=== PATIENT | male | born 1950 | race Caucasian/White ===

== ENCOUNTER → 2019-12-08 | Outpatient (CLI) | payer MEDICARE ==
[~2019-12-08] MED LIST: ALBU8.5H8 INH; AMIO200T42 PO; ASPI81TA45 PO; ATOR-2 PO; BUPR150T73 PO; FURO20TA3 PO; HYDR-3237 PO; LISI5TAB7 PO; MELA5TAB14 PO; METO25TA91 PO; METR-90 PO; TAMS-11 PO; WARF7.5T PO-COUM
== END | disposition home or self-care (01) ==
LOC: CVU 09:14
PROVIDERS: ATTEND Internal Medicine Cardiovascular Disease
DX: I51.7 Cardiomegaly (principal); I48.91 Unspecified atrial fibrillation; Z95.2 Presence of prosthetic heart valve
CPT/HCPCS: 93306

== ENCOUNTER 2019-12-15 10:07 | Day surgery (SDC) | payer MEDICARE ==
[~2019-12-15] VITALS: Ht 190.5 cm; Wt 78.2 kg
[2019-12-15] MEDS ORDERED: SODIUM CHLORIDE 0.9% 1,000 ML IV SCH (11:00)
[2019-12-15] MEDS ORDERED: WARF7.5T46 PO (11:12)
[2019-12-15] MEDS ORDERED: FURO20TA3 PO (11:14)
[2019-12-15] MEDS ORDERED: AMIO100T4 PO (11:14)
[2019-12-15] MEDS ORDERED: METO25TA91 PO (11:14)
[2019-12-15] MEDS ORDERED: LISI5TAB7 PO (11:15)
[2019-12-15 11:18] VITALS: BP 117/68
[2019-12-15 11:33] LABS: INTERNATIONAL NORMALIZED RATIO 1.86 (0.93-1.1); PROTHROMBIN TIME 19.3 Seconds (9.6-11.5)
[2019-12-15 11:36] LABS: ANION GAP 5 mmol/L (5-15); CALCIUM 9.1 mg/dL (8.5-10.1); CHLORIDE 109 mmol/L (98-107); CREATININE 1.07 mg/dL (0.7-1.3)
== END 2019-12-15 12:30 | disposition home or self-care (01) ==
LOC: CACL 10:07
PROVIDERS: ATTEND Internal Medicine Clinical Cardiac Electrophysiology
DX: I48.19 Other persistent atrial fibrillation (principal); Z53.8 Procedure and treatment not carried out for other reasons; I42.8 Other cardiomyopathies; F17.210 Nicotine dependence, cigarettes, uncomplicated; F12.90 Cannabis use, unspecified, uncomplicated; Z79.82 Long term (current) use of aspirin; Z79.899 Other long term (current) drug therapy; Z88.5 Allergy status to narcotic agent; Z88.8 Allergy status to other drugs, medicaments and biological substances; Z88.0 Allergy status to penicillin; Z72.89 Other problems related to lifestyle; Z20.828 Contact with and (suspected) exposure to other viral communicable diseases; Z95.2 Presence of prosthetic heart valve
CPT/HCPCS: 36415; 80048; 85610; 87635; 92960; 93005

== ENCOUNTER 2019-12-19 09:55 | Day surgery (SDC) | payer MEDICARE ==
[~2019-12-19] VITALS: Ht 190.5 cm; Wt 78.2 kg
[~2019-12-19 09:55] MED LIST changes: +AMIO100T4 PO; +WARF7.5T46 PO
[2019-12-19] MEDS ORDERED: SODIUM CHLORIDE 0.9% 1,000 ML IV SCH (10:30)
[2019-12-19 10:33] VITALS: BP 139/63
[2019-12-19 10:55] LABS: INTERNATIONAL NORMALIZED RATIO 3.64 (0.93-1.1); PROTHROMBIN TIME 38.1 Seconds (9.6-11.5)
[2019-12-19 10:57] LABS: ANION GAP 7 mmol/L (5-15); CALCIUM 9.1 mg/dL (8.5-10.1); CHLORIDE 112 mmol/L (98-107)
[2019-12-19] MEDS ORDERED: PROPOFOL 10 MG/ML, 20ML ONE (12:32)
== END 2019-12-19 13:28 | disposition home or self-care (01) ==
LOC: CACL 09:55
PROVIDERS: ATTEND Internal Medicine Clinical Cardiac Electrophysiology
DX: I48.19 Other persistent atrial fibrillation (principal); Z20.828 Contact with and (suspected) exposure to other viral communicable diseases; I42.8 Other cardiomyopathies; I50.9 Heart failure, unspecified; Z79.01 Long term (current) use of anticoagulants; Z79.82 Long term (current) use of aspirin; Z79.891 Long term (current) use of opiate analgesic; Z79.899 Other long term (current) drug therapy; Z87.891 Personal history of nicotine dependence; Z88.0 Allergy status to penicillin; Z88.5 Allergy status to narcotic agent; Z95.2 Presence of prosthetic heart valve; Z95.0 Presence of cardiac pacemaker; Z95.1 Presence of aortocoronary bypass graft
CPT/HCPCS: 36415; 80048; 85610; 87635; 92960; 93005; 93312; 93325; J2704

== ENCOUNTER 2020-02-15 10:10 | Observation (INO) | payer MEDICARE ==
[~2020-02-15] VITALS: Ht 190.5 cm; Wt 86.3 kg
[2020-02-15] MEDS: SODIUM CHLORIDE 0.9% 1,000 ML IV SCH ×3 (12:30→21:59)
[2020-02-15] MEDS ORDERED: WARF-36 PO ×2 (12:38→12:39)
[2020-02-15 12:43] VITALS: BP 138/82
[2020-02-15 12:57] LABS: BASOPHILS % (AUTO) 1 % (0-1); EOSINOPHILS % (AUTO) 1 % (1-7); LYMPHOCYTES % (AUTO) 15 % (22-44); MEAN CORPUSCULAR HEMOGLOBIN 28.4 pg (27.5-34.5); MEAN CORPUSCULAR HGB CONC 33.1 g/dL (33.2-36.2); MEAN PLATELET VOLUME 8.9 fL (7.4-10.4); MONOCYTES % (AUTO) 7 % (2-9); NEUTROPHILS % (AUTO) 77 % (42-75); PLATELET COUNT 245 x10^3/uL (130-400); RED BLOOD COUNT 5.54 x10^6/uL (4.38-5.82); RED CELL DISTRIBUTION WIDTH 15.3 % (9.4-14.8)
[2020-02-15 13:02] LABS: INTERNATIONAL NORMALIZED RATIO 1.14 (0.93-1.1); PROTHROMBIN TIME 12.1 Seconds (9.6-11.5)
[2020-02-15 13:05] LABS: ANION GAP 3 mmol/L (5-15); CALCIUM 9.2 mg/dL (8.5-10.1); CHLORIDE 110 mmol/L (98-107); CREATININE 1.18 mg/dL (0.7-1.3)
[2020-02-15 13:07] LABS: MD NO
[2020-02-15] MEDS ORDERED: FENTANYL PF 250 MCG/5ML ONE (13:29)
[2020-02-15] MEDS ORDERED: ROCURONIUM 10MG/ML,5ML ONE (13:30)
[2020-02-15] MEDS ORDERED: DEXAMETHASONE 4 MG/ML, 5ML ONE (13:32)
[2020-02-15] MEDS ORDERED: VASOPRESSIN 20 UNIT/ML, 1ML ONE (14:01)
[2020-02-15] MEDS ORDERED: GLYCOPYRROLATE 0.2MG/1ML, 5ML ONE (14:01)
[2020-02-15] MEDS ORDERED: ONDANSETRON 2MG/ML, 2ML ONE (14:01)
[2020-02-15] MEDS ORDERED: NEOSTIGMINE 1 MG/ML, 10ML ONE (14:01)
[2020-02-15] MEDS ORDERED: PROPOFOL 10 MG/ML, 20ML ONE (14:01)
[2020-02-15] MEDS ORDERED: LIDOCAINE 1%, 20ML ONE ×2 (14:17→15:03)
[2020-02-15] MEDS ORDERED: CEFAZOLIN 1,000 MG ONE (14:42)
[2020-02-15] MEDS ORDERED: DIAZEPAM 5 MG/ML, 2ML IVPush PRN (17:00)
[2020-02-15] MEDS ORDERED: LABETALOL 5MG/ML, 20ML IV PRN (17:00)
[2020-02-15] MEDS ORDERED: HYDROmorphone 1 MG/ML, 1ML INJ IVPush PRN (17:00)
[2020-02-15] MEDS ORDERED: ONDANSETRON 2MG/ML, 2ML IVPush PRN (17:00)
[2020-02-15] MEDS ORDERED: PROMETHAZINE 25 MG/ML, 1ML IVPush PRN (17:00)
[2020-02-15] MEDS ORDERED: HOLD MEDICATION MC PRN (17:00)
[2020-02-15] MEDS ORDERED: MIDAZOLAM 1 MG/ML, 2ML IV PRN (17:00)
[2020-02-15] MEDS ORDERED: MEPERIDINE/PF 25MG/0.5ML IVPush PRN (17:00)
[2020-02-15] MEDS ORDERED: hydrALAzine 20 MG/ML, 1ML IV PRN (17:00)
[2020-02-15] MEDS ORDERED: LISINOPRIL 5 MG TABLET PO PRN (17:00)
[2020-02-15] MEDS ORDERED: FUROSEMIDE 20 MG TABLET PO PRN (17:00)
[2020-02-15] MEDS ORDERED: EPHEDRINE 50 MG/ML, 1ML IVPush PRN (17:00)
[2020-02-15] MEDS ORDERED: ALBUTEROL SULFATE 2.5 MG/3 ML NPPB PRN (17:00)
[2020-02-15] MEDS ORDERED: FENTANYL PF 100 MCG/2ML IV PRN (17:00)
[2020-02-15] MEDS ORDERED: PROMETHAZINE 12.5 MG SUPP PR PRN (17:00)
[2020-02-15] MEDS ORDERED: DIPHENHYDRAMINE 50 MG/ML, 1ML IVPush PRN (17:00)
[2020-02-15] MEDS ORDERED: OXYcodone 5 MG/5 ML ORAL.SOL UDC ONE ×2 (17:57→18:23)
[2020-02-15] MEDS ORDERED: ACETAMINOPHEN 650 MG/20.3 ML UDC ONE (17:57)
[2020-02-15] MEDS: OXYcodone 5 MG/5 ML ORAL.SOL UDC PO PRN ×2 (17:58→18:23)
[2020-02-15] MEDS: ACETAMINOPHEN 325 MG TABLET PO PRN ×2 (17:59→21:57)
[2020-02-15] MEDS ORDERED: WARFARIN 5 MG TABLET PO-COUM SCH (18:00)
[2020-02-15] MEDS ORDERED: FENTANYL PF 100 MCG/2ML ONE (18:23)
[2020-02-15] MEDS ORDERED: ATORVASTATIN 80 MG TABLET PO SCH (21:00)
[2020-02-15] MEDS: SODIUM CHLORIDE FLUSH 10ML SYR IVF SCH (21:57)
[2020-02-16 00:34] VITALS: BP 119/72
[2020-02-16] MEDS: ACETAMINOPHEN 325 MG TABLET PO PRN (06:03)
[2020-02-16 07:10] VITALS: BP 120/71
[2020-02-16] MEDS: SODIUM CHLORIDE FLUSH 10ML SYR IVF SCH (09:00)
[2020-02-16] MEDS ORDERED: METOPROLOL SUCCINATE 25 MG TAB.ER.24H PO SCH (09:00)
[2020-02-16] MEDS ORDERED: TAMSULOSIN 0.4 MG CAP.ER.24H PO SCH (09:00)
[2020-02-16] MEDS ORDERED: BUPROPION SR 150 MG TABLET PO SCH (09:00)
[2020-02-16] MEDS ORDERED: ASPIRIN 81 MG TABLET EC PO SCH (09:00)
[2020-02-16] MEDS ORDERED: OXYcodone IR 5MG TABLET ONE (09:08)
[2020-02-16] MEDS ORDERED: WARFARIN 5 MG TABLET PO-COUM SCH (18:00)
[2020-02-17] MEDS ORDERED: WARFARIN 2.5 MG TABLET PO-COUM SCH (18:00)
== END 2020-02-16 10:18 | disposition home or self-care (01) ==
LOC: CACL 10:10 → ORIP 16:35 → 5SO 18:53 → DCLOUNGE 02-16 10:09
PROVIDERS: ADMIT Internal Medicine Clinical Cardiac Electrophysiology; ATTEND Internal Medicine Clinical Cardiac Electrophysiology
DX: I48.19 Other persistent atrial fibrillation (principal); Z20.828 Contact with and (suspected) exposure to other viral communicable diseases; I49.9 Cardiac arrhythmia, unspecified; I48.0 Paroxysmal atrial fibrillation; I48.92 Unspecified atrial flutter; I45.10 Unspecified right bundle-branch block; I42.8 Other cardiomyopathies; I50.9 Heart failure, unspecified; N40.0 Benign prostatic hyperplasia without lower urinary tract symptoms; Z95.0 Presence of cardiac pacemaker; Z88.0 Allergy status to penicillin; Z79.01 Long term (current) use of anticoagulants; Z79.82 Long term (current) use of aspirin; Z79.899 Other long term (current) drug therapy; Z98.890 Other specified postprocedural states; Z87.891 Personal history of nicotine dependence
CPT/HCPCS: 33224; 36415; 71045; 71046; 80048; 85025; 85610; 87635; 93005; 93650; C1769; C1882; C1887; C1892; C1894; C1900; C2630; G0378; J0690; J1100; J2405; J2704; J2710; J3010; J3490; Q9967

== ENCOUNTER → 2020-07-05 | Outpatient (CLI) | payer MEDICARE ==
[~2020-07-05] MED LIST changes: +WARF-36 PO
== END | disposition home or self-care (01) ==
LOC: CVU 10:36
PROVIDERS: ATTEND Internal Medicine Clinical Cardiac Electrophysiology
DX: I36.1 Nonrheumatic tricuspid (valve) insufficiency (principal); I25.5 Ischemic cardiomyopathy; I48.0 Paroxysmal atrial fibrillation; Z95.2 Presence of prosthetic heart valve
CPT/HCPCS: 93306